=== PATIENT | female | born 1950 | race Caucasian/White ===

== ENCOUNTER 2017-10-26 13:52 | Emergency (ER) | payer MEDICARE, BC ==
[~2017-10-26] VITALS: Ht 157.5 cm; Wt 68.1 kg
[2017-10-26] MEDS ORDERED: CLIN150C2 PO (14:30)
[2017-10-26] MEDS ORDERED: IBUP-1984 PO (14:30)
[2017-10-26] MEDS ORDERED: ibuprofen 200mg tablet PO ONE (14:30)
[2017-10-26] MEDS: clindamycin 150mg capsule PO ONE ×2 (14:40→14:43)
[2017-10-26 15:23] VITALS: BP 129/91
== END 2017-10-26 15:24 | disposition home or self-care (01) ==
LOC: ER 13:52
DX: L03.011 Cellulitis of right finger (principal); Z88.0 Allergy status to penicillin; Z88.1 Allergy status to other antibiotic agents
CPT/HCPCS: 99283

== ENCOUNTER 2018-03-20 16:57 | Emergency (ER) | payer MEDICARE, BC ==
[~2018-03-20] VITALS: Ht 160 cm; Wt 75.0 kg
[2018-03-20] MEDS ORDERED: normal saline 1000ML IV soln IVB ONE (17:20)
[2018-03-20 17:48] LABS: BASOPHILS # (AUTO) 0.1 X10'3 (0-0.2); BASOPHILS % (AUTO) 0.5 % (0-1); EOSINOPHILS # (AUTO) 0.3 X10'3 (0-0.9); EOSINOPHILS % (AUTO) 1.8 % (0-6); HEMATOCRIT 37.1 % (35.0-45.0); HEMOGLOBIN 12.2 g/dl (12.0-16.0); LYMPHOCYTES # (AUTO) 2.6 X10'3 (1.1-4.8); LYMPHOCYTES % (AUTO) 18.2 % (21-51); MEAN CORPUSCULAR HEMOGLOBIN 33.1 PG (27.0-31.0); MEAN CORPUSCULAR HGB CONC 32.9 % (33.0-36.5); MEAN CORPUSCULAR VOLUME 100.6 FL (78-98); MEAN PLATELET VOLUME 7.8 FL (7.4-10.4); MONOCYTES # (AUTO) 1.5 X10'3 (0-0.9); MONOCYTES % (AUTO) 10.7 % (2-12); NEUTROPHILS # (AUTO) 9.9 X10'3 (1.8-7.7); NEUTROPHILS % (AUTO) 68.8 % (42-75); PLATELET COUNT 193 X10'3 (140-440); RED BLOOD COUNT 3.69 X10'6 (4.20-5.60); RED CELL DISTRIBUTION WIDTH 16.3 % (11.5-14.5); WHITE BLOOD COUNT 14.4 X10'3 (4.5-11.0)
[2018-03-20 19:07] LABS: ALANINE AMINOTRANSFERASE 25 U/L (12-78); ALBUMIN 3.1 G/DL (3.4-5.0); ALBUMIN/GLOBULIN RATIO 1.2 (1.1-1.5); ALKALINE PHOSPHATASE 52 IU/L (46-116); ANION GAP 6 (8-16); ASPARTATE AMINO TRANSFERASE 32 U/L (10-37); BILIRUBIN,TOTAL 1.7 MG/DL (0.1-1.0); BLOOD UREA NITROGEN 26 MG/DL (7-18); BUN/CREATININE RATIO 25.5 (6.6-38.0); CALCIUM 8.8 MG/DL (8.5-10.1); CHLORIDE 101 MMOL/L (99-107); CREATININE 1.02 MG/DL (0.40-0.90); GLUCOSE 83 MG/DL (70-104); POTASSIUM 3.7 MMOL/L (3.5-5.1); SODIUM 142 MMOL/L (135-145); TOTAL CARBON DIOXIDE 35.3 MMOL/L (24-32); TOTAL PROTEIN 5.6 G/DL (6.4-8.2); eGFR 54 ML/MIN
[2018-03-20 20:08] LABS: CLARITY,URINE CLEAR (Clear); COLOR,URINE YELLOW (Yellow); GLUCOSE, URINE NEGATIVE (Neg); KETONES,URINE NEGATIVE (Neg); LEUKOCYTE ESTERASE ,URINE NEGATIVE (Neg); NITRITES, URINE NEGATIVE (Neg); OCCULT BLOOD,URINE NEGATIVE (Neg); PROTEIN,URINE NEGATIVE (Neg)
[2018-03-20 20:13] LABS: UA COLLECTION TYPE STRAIGHT CATH
[2018-03-20] MEDS ORDERED: acetaminophen w/codeine (30MG) #3 tablet PO ONE (22:50)
[2018-03-20 22:55] VITALS: BP 113/86
== END 2018-03-21 | disposition home or self-care (01) ==
LOC: ER 16:57
DX: S91.302A Unspecified open wound, left foot, initial encounter (principal); S91.301A Unspecified open wound, right foot, initial encounter; N28.9 Disorder of kidney and ureter, unspecified; Z88.0 Allergy status to penicillin; Z88.1 Allergy status to other antibiotic agents; Z88.8 Allergy status to other drugs, medicaments and biological substances; X58.XXXA Exposure to other specified factors, initial encounter; Y93.89 Activity, other specified; Y92.89 Other specified places as the place of occurrence of the external cause; Y99.8 Other external cause status
CPT/HCPCS: 36415; 71045; 80053; 81003; 83735; 84439; 84443; 84484; 85025; 93005; 99285; J7030; A4315